=== PATIENT | male | born 1990 | race African-American/Black ===

== ENCOUNTER 2020-05-16 03:38 | Emergency (ER) | payer OTHER ==
[~2020-05-16] VITALS: Ht 175.3 cm; Wt 76.8 kg
[2020-05-16] MEDS ORDERED: KETOROLAC 30 MG/ML 1ML VIAL IM ONE (04:00)
[2020-05-16] MEDS ORDERED: KETO10TAB PO (05:10)
[2020-05-16] MEDS ORDERED: NORCO 5/325MG TABLET (BULK FOR ED) PO ONE (05:15)
[2020-05-16 05:32] VITALS: BP 123/59
--- NOTE | 2020-06-14 16:07 | REP ---
RIGHT HIP SERIES CLINICAL: Trauma. Pain. TECHNIQUE: Frontal view of the pelvis with neutral and frog lateral views of the right hip. FINDINGS: Frontal view of the pelvis is unremarkable. Two views of the right hip demonstrate no acute fracture or dislocation. No degenerative changes. Surrounding soft tissues are normal. IMPRESSION: Normal examination. No acute fracture or dislocation. MTDD
== END 2020-05-16 05:35 | disposition home or self-care (01) ==
LOC: M ED 03:38
DX: S70.01XA Contusion of right hip, initial encounter (principal); W17.2XXA Fall into hole, initial encounter; Y92.138 Other place on military base as the place of occurrence of the external cause; Y93.89 Activity, other specified; Y99.1 Military activity
CPT/HCPCS: 73502; 96372; 99284; J1885

== ENCOUNTER 2020-05-22 09:16 | Emergency (ER) | payer OTHER ==
[~2020-05-22] VITALS: Ht 175.3 cm; Wt 75.4 kg
[~2020-05-22 09:16] MED LIST: KETO10TAB PO
[2020-05-22] MEDS ORDERED: LIDOCAINE 2% MDV 20ML VIAL SC ONE (10:45)
[2020-05-22 11:29] VITALS: BP 135/60
== END 2020-05-22 11:29 | disposition home or self-care (01) ==
LOC: M ED 09:16
DX: S61.211A Laceration without foreign body of left index finger without damage to nail, initial encounter (principal); W26.8XXA Contact with other sharp object(s), not elsewhere classified, initial encounter; Y92.59 Other trade areas as the place of occurrence of the external cause; Y93.89 Activity, other specified; Y99.0 Civilian activity done for income or pay

== ENCOUNTER → 2020-11-09 | Outpatient (CLI) | payer OTHER ==
[~2020-11-09] MED LIST changes: +ISOVUE-300 61% 50ML VIAL As Ordered ONE; +LIDOCAINE 1% MDV 20ML VIAL As Ordered ONE; +TRIAMCINOLONE ACETONIDE SUSP 40 MG/ML VIAL (J3301) As Ordered ONE
--- NOTE | 2020-11-09 16:37 | REP ---
INDICATION: RT HIP PAIN, LAURA VS LABRAL TEAR. COMPARISON: None. TECHNIQUE: The procedure was performed under the direct supervision of Dr. CORRALES. The benefits and risks including but not limited to pain infection and bleeding and anaphylaxis were explained to the patient and informed consent was obtained. The RIGHT femoral neck was localized using fluoroscopic guidance. The skin was prepped and draped in a sterile fashion. 1% lidocaine was used as a local anesthetic. Using fluoroscopic guidance a 22-gauge spinal needle was inserted and advanced to the femoral neck. 0.5 ml of ISOVUE-300 was injected to verify placement. 10 ml of a solution containing 9 ml of 1% Xylocaine and 1 ml of Kenalog 40 mg was injected. The needle was then removed. The patient tolerated the procedure well and there were no immediate complications. Less than 6 seconds of fluoro time was utilized for this procedure. FINDINGS: None IMPRESSION: Fluoro guidance for right hip injection. <Electronically signed by Yasir Knapp > 11/09/20 1612 <Electronically signed by Nasir Corrales > 11/09/20 [id number]
== END ==
LOC: M RADPRO 10:21
PROVIDERS: ATTEND Physician Assistant Surgical
DX: M24.851 Other specific joint derangements of right hip, not elsewhere classified (principal)
CPT/HCPCS: 20610; 77002; J3301; Q9967

== ENCOUNTER 2020-11-22 06:39 | Emergency (ER) | payer OTHER ==
[~2020-11-22] VITALS: Ht 175.3 cm; Wt 72.2 kg
[~2020-11-22 06:39] MED LIST changes: -ISOVUE-300 61% 50ML VIAL As Ordered ONE; -LIDOCAINE 1% MDV 20ML VIAL As Ordered ONE; -TRIAMCINOLONE ACETONIDE SUSP 40 MG/ML VIAL (J3301) As Ordered ONE
[2020-11-22 07:38] LABS: BASO % 0.4 % (0.0-1.0); EOS # 0.1 10^3/uL (0.0-0.5); EOS % 1.5 % (0.0-3.0); HEMATOCRIT 39.2 % (42.0-52.0); HEMOGLOBIN 12.8 g/dl (13.5-17.5); LYMPH # 2.5 10^3/uL (1.5-5.0); LYMPH % 52.1 % (24.0-44.0); MEAN CORPUSCULAR HEMOGLOBIN 29.2 pg (27.0-33.0); MEAN CORPUSCULAR HGB CONC 32.7 g/dl (32.0-36.5); MEAN CORPUSCULAR VOLUME 89.3 fl (80.0-96.0); MONO # 0.5 10^3/uL (0.0-0.8); MONO % 9.9 % (2.0-8.0); NEUTROPHILS # 1.7 10^3/uL (1.5-8.5); NEUTROPHILS % 35.9 % (36.0-66.0); PLATELET COUNT, AUTOMATED 292 10^3/uL (150-450); RED BLOOD COUNT 4.39 10^6/uL (4.30-6.10); WHITE BLOOD COUNT 4.8 10^3/uL (4.0-10.0)
[2020-11-22 08:07] LABS: BLOOD UREA NITROGEN 14 MG/DL (7-18); CALCIUM LEVEL 8.8 MG/DL (8.5-10.1); CARBON DIOXIDE LEVEL 29 MEQ/L (21-32); CHLORIDE LEVEL 106 MEQ/L (98-107); CREATININE FOR GFR 1.01 MG/DL (0.70-1.30); GLOMERULAR FILTRATION RATE > 60.0 (>60); GLUCOSE, FASTING 87 MG/DL (70-100); SODIUM LEVEL 141 MEQ/L (136-145)
--- NOTE | 2020-11-22 08:14 | REP ---
INDICATION: r/o lymphadenopathy vs hematoma vs hernia R inguinal region COMPARISON: None. TECHNIQUE: Grayscale and color B-mode evaluation of the bilateral groin. FINDINGS: The patient's palpable mass at the right groin corresponds to a 2.1 x 0.8 x 1.5 cm simple appearing benign lymph node. Smaller subcentimeter lymph nodes are also identified bilaterally. Small bilateral fat containing inguinal hernias are identified. Right inguinal defect measures up to 14 mm on Valsalva while the left inguinal defect measures 15 mm on Valsalva. No associated herniating bowel or fluid collections are identified. IMPRESSION: 1. Palpable mass in the right groin corresponds to benign appearing lymph node. 2. Small bilateral fat containing inguinal hernias noted. <Electronically signed by Aldo Arias > 11/22/20 [id number]
[2020-11-22 09:11] VITALS: BP 131/69
--- NOTE | 2020-11-24 07:34 | ED PDOC ---
Post-Departure Follow-Up pelvic us faxed to mike aponte for fu Suha Plummer MD Nov 24, 2020 07:33
== END 2020-11-22 09:13 | disposition home or self-care (01) ==
LOC: M ED 06:39
DX: K40.21 Bilateral inguinal hernia, without obstruction or gangrene, recurrent (principal); F17.200 Nicotine dependence, unspecified, uncomplicated; Z80.9 Family history of malignant neoplasm, unspecified